=== PATIENT | female | born 1960 | race Caucasian/White ===

== ENCOUNTER 2016-11-25 11:37 | Day surgery (SDC) | payer MEDICAID ==
[~2016-11-25 11:37] MED LIST: ceFAZolin 2 GM/50 ML 50 ML IV ONE
[2016-11-25] MEDS ORDERED: LACTATED RINGERS 1,000 ML IV ONE ×2 (11:44→13:00)
[2016-11-25] MEDS ORDERED: BUPIVACAINE 0.25%-EPI 1:200000 PF 30 ML VIAL SUBQ ONE ×2 (12:53)
[2016-11-25] MEDS ORDERED: MIDAZOLAM 2 MG/2 ML VIAL IVP ONE (13:00)
[2016-11-25] MEDS ORDERED: DEXAMETHASONE 4 MG/ML VIAL IVP ONE (13:00)
[2016-11-25] MEDS ORDERED: PROPOFOL 200 MG/20 ML VIAL IVP ONE (13:00)
[2016-11-25] MEDS ORDERED: ONDANSETRON 4 MG/2 ML VIAL IVP ONE (13:00)
[2016-11-25] MEDS ORDERED: ACETAMINOPHEN 1,000 MG/100 ML VIAL IV ONE (13:00)
[2016-11-25] MEDS ORDERED: LIDOCAINE-MPF 2% 5 ML VIAL IM ONE (13:00)
[2016-11-25] MEDS ORDERED: fentaNYL 100 MCG/2 ML VIAL IVP ONE (13:00)
[2016-11-25] MEDS: fentaNYL 100 MCG/2 ML VIAL ONE ×2 (14:14→14:22)
[2016-11-25] MEDS: HYDROmorphone 1 MG/ML SYRINGE ONE ×3 (14:30→14:48)
[2016-11-25] MEDS ORDERED: KETOROLAC 15 MG/ML VIAL ONE (14:33)
--- NOTE | 2016-11-25 14:44 | OPERATIVE REPORT ---
DATE OF SURGERY: 11/25/2016 00:00:00 PREOPERATIVE DIAGNOSIS: Left intraarticular closed distal radial fracture. POSTOPERATIVE DIAGNOSIS: Left intraarticular closed distal radial fracture. NAME OF PROCEDURE: Open reduction internal fixation of left distal radius intraarticular closed fract ure. OPERATING SURGEON: Maki Peguero MD ANESTHESIA: General by Last. INDICATIONS FOR SURGERY: The patient is a 55-year-old female who suffered a ground-level fall injurin g her left wrist and having a dorsally angulated comminuted fracture. This fracture when splinted jose eared unstable after closed reduction and surgery was recommended. FINDINGS AT SURGERY: The patient's fracture was able to be reduced into an anatomic position and the stability was maintained with volar plating. The patient's bone density appeared normal, and the giuliano adithya from the volar approach appeared unremarkable. DESCRIPTION OF OPERATIVE PROCEDURE: The patient was taken to operating room, was given a general anes thetic with a tourniquet high on the left arm and a sterile prep and drape, the tourniquet was inflat ed to 250 mmHg. A volar radial incision was made and deeper dissection along the radial side of the f lexor carpi radialis tendon, preserving the radial artery and directly dissecting down onto the prona tor quadratus, which was divided off the radial aspect of the distal radius and reflected. The fractu re was identified and reduced into position, and a DVR Biomet plate was applied to the radius and fix ed in the oblong proximal hole and adjusted to the proper location, after which locking screws were a pplied distal and proximal gaining excellent fixation of the fracture in anatomic congregational. C-arm images confirmed alignment and satisfactory reduction. At the conclusion, the wounds were irrigated. Closure was with interrupted Vicryl subcutaneous and interrupted Vicryl in the deeper layer followed by Monocryl closure of skin after which a sugar-tong splint was applied and the patient was taken to recovery room in stable condition. ESTIMATED BLOOD LOSS: Minimal. COMPLICATIONS: None. SPONGE AND NEEDLE COUNTS: Correct. JOB #: [id number] EXT JOB #:[id number]
[2016-11-25] MEDS ORDERED: oxyCOD/ACETAMIN 5 MG/325 MG TABLET PO ONE (15:45)
[2016-11-25 16:36] VITALS: BP 109/65
--- NOTE | 2016-11-25 18:09 | XRAY Report ---
TWO VIEWS OF THE LEFT WRIST TAKEN IN SURGERY WITH THE MOBILE C-ARM: 11/25/2016 FINDINGS: Internal fixation and reduction of a fracture of the distal left radius. Orthopedic plate and screws are noted in place. The orthopedic plate is along the dorsal aspect of the distal left r adius with the screws maintaining the position of the plate within the left radius. Anatomical posit ion and alignment is noted. IMPRESSION: INTERNAL FIXATION OF A FRACTURE OF THE DISTAL LEFT RADIUS WITH ANATOMICAL POSITION AND A LIGNMENT NOTED. FLUORO TIME WAS 0.12 MINUTES. JOB #: [id number] EXT JOB #:[id number]
--- NOTE | 2016-12-25 14:25 | XRAY Report ---
[facility] SERVICES: Fluoroscopy time only, no images submitted for interpretation. Fluoroscopy time 0 minutes, 12 seconds. PRASHANTD
== END 2016-11-25 11:38 | disposition home or self-care (01) ==
LOC: SDS 11:37
PROVIDERS: ATTEND Orthopaedic Surgery
PROC: 0PSJ04Z Reposition Left Radius with Internal Fixation Device, Open Approach (ICD-10-PCS; principal; 2016-11-25 13:15)
DX: S52.572A Other intraarticular fracture of lower end of left radius, initial encounter for closed fracture (principal); W18.30XA Fall on same level, unspecified, initial encounter; Y93.51 Activity, roller skating (inline) and skateboarding; Z80.49 Family history of malignant neoplasm of other genital organs; Z81.1 Family history of alcohol abuse and dependence; R20.0 Anesthesia of skin; Z98.890 Other specified postprocedural states
CPT/HCPCS: 25608; 29515; 73100; 99283; A9270; C1713; J0131; J0690; J1170; J7120

== ENCOUNTER 2016-11-25 20:33 | Emergency (ER) | payer MEDICAID ==
--- NOTE | 2016-11-25 22:09 | ED Physician Documentation ---
PD HPI UPPER EXT INJURY - Stated complaint Stated Complaint: LT HAND NUMBNESS - Chief complaint Chief Complaint: Ext Problem - History obtained from History obtained from: Patient - History of Present Illness Location: Left, Wrist, Hand, Finger Type of injury: Other (she had wrist fracture surgery earlier today and is noting numbness of the thumb, edema fingers, and then little/ring finger numbness the past couple hours. Normal color. Has been resting and icing the wrist.) Timing - onset: Today (the past few hours since getting home from surgery on the wrist.) Timing - duration: Hours Timing - details: Gradual onset, Still present Improved by: No: Rest Associated symptoms: Numbness (left thumb and also little/ring fingers). No: Weakness Contributing factors: Prior ortho surgery (earlier today) Recently seen: Surgery Review of Systems Constitutional: denies: Fever, Chills Neurologic: reports: Numbness. 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 : Kidney stones HEENT: None Psych: Depression Musculoskeletal: None Derm: None - Past Surgical History Past Surgical History: Yes /PORCELAIN ENAMEL SPRAYER: section - Present Medications Home Medications: Ambulatory Orders Medication Instructions Recorded Confirmed Cephalexin [Keflex] 500 mg PO Q6H 7 Days 08/12/14 Fluconazole 150 mg PO ONCE #1 tablet 08/12/14 Phenazopyridine [Pyridium] 200 mg PO TID #6 tablet 08/12/14 - Allergies Allergies/Adverse Reactions: Allergies Allergy/AdvReac Type Severity Reaction Status Date / Time No Known Drug Allergies Allergy Verified 01/07/14 10:06 - Social History Does the pt smoke?: No Smoking Status: Never smoker Does the pt drink ETOH?: Yes Does the pt have substance abuse?: No - Immunizations Immunizations are current?: Yes - POLST Patient has POLST: No PD ED PE NORMAL - Vitals Vital signs reviewed: Yes - General General: Alert and oriented X 3, Well developed/nourished - Cardiac Cardiac: RRR, No murmur - Respiratory Respiratory: No respiratory distress, Clear bilaterally - Derm Derm: Normal color, Warm and dry - Extremities Extremities: Other (left arm in sling, with splint and wrap on forearm, sugartong splint with bend in it at distal to elbow. There is some swelling mildly of fingers distal to the wrap end. Subjective numbness to touch of thumb. Also slight numb to little/ring fingers. Good color and cap refill to them. She can wiggle fingers some. ) - Neuro Neuro: Alert and oriented X 3, Normal speech Results - Vitals Vitals: Vital Signs - 24 hr 11/25/16 11/25/16 20:40 22:33 Temperature 36.6 C 37.4 C Heart Rate 72 60 Respiratory 17 20 Rate Blood Pressure 115/64 112/59 L O2 Saturation 98 95 Oxygen O2 Source Room air Procedures - Splint (location) left forearm Splint applied by: Tech Type of splint: Sugar tong Other: Patient tolerated well, No complications PD MEDICAL DECISION MAKING - ED course Complexity details: considered differential (might be from splint and webbing being tight, so removed it and tech applied new. Her little/ring fingers improved, but still numbness in thumb. No increase in edema. Still good color, cap refill, movement of fingers (though hurts wrist). May have some pressure from surgery, but not seeming to level of compartment pressure issue. To watch for increasing symptoms. ), d/w patient, d/w cloud consultant (Carmen) Departure - Departure Disposition: 01 Home, Self Care Clinical Impression: Post-operative numbness Condition: Stable Record reviewed to determine appropriate education?: Yes Follow-Up: Maki Peguero MD [Provider Admit Priv/Credential] - Comments: Rest and elevate arm this evening. Call Dr. Peguero tomorrow to update how you are feeling. Return if worse overnight. Forms: Activity restrictions Discharge Date/Time: 11/25/16 22:58
[2016-11-25 22:38] VITALS: BP 112/59
== END 2016-11-25 22:58 | disposition home or self-care (01) ==
LOC: ED 20:33
DX: R20.0 Anesthesia of skin (principal); Z98.890 Other specified postprocedural states
CPT/HCPCS: 29515; 99283

== ENCOUNTER 2017-01-06 11:13 | Outpatient (CLI) | payer MEDICAID ==
--- NOTE | 2017-01-06 13:50 | XRAY Report ---
THREE-VIEW LEFT WRIST: 01/06/2017 CLINICAL INDICATION: Fracture fixation followup. COMPARISON: Intraoperative images 11/25/2016. FINDINGS: There has been sideplate and screw fixation of the intraarticular distal radial fracture. Alignment appears near anatomic. Mild osteoarthritic changes are noted. No acute fracture is seen. IMPRESSION: SIDEPLATE AND SCREW FIXATION OF DISTAL RADIAL FRACTURE. MILD OSTEOARTHRITIS. JOB #: [id number] EXT JOB #:[id number]
== END 2017-01-06 11:14 | disposition home or self-care (01) ==
LOC: DI 11:13
PROVIDERS: ATTEND Orthopaedic Surgery
DX: S52.572D Other intraarticular fracture of lower end of left radius, subsequent encounter for closed fracture with routine healing (principal)

== ENCOUNTER 2022-04-26 08:00 | Outpatient (CLI) | payer SELFPAY | END 2022-04-26 23:59 | disposition home or self-care (01) | LOC: LAB.N 08:00 | PROVIDERS: ATTEND Family Medicine | DX: R30.0 Dysuria (principal) | CPT/HCPCS: 87086 ==